=== PATIENT | male | born 1995 | race Caucasian/White ===

== ENCOUNTER 2022-09-22 07:09 | Emergency (ER) | payer SELFPAY ==
[2022-09-22 07:19] VITALS: BP 122/78
--- NOTE | 2022-09-22 07:28 | ED Physician Documentation ---
History of Present Illness - Stated complaint Stated Complaint: CONSTIPATION - Chief complaint Chief Complaint: General - History obtained from History obtained from: Patient - Additonal information Additional information: Otherwise healthy 27-year-old gentleman has not had a decent bowel movement in the last 3 to 4 days. He has rectal pain especially when he tries to have a bowel movement. Minimal anterior abdominal pain. No nausea. No clear inciting cause for this. He tried Dulcolax without relief. PD PAST MEDICAL HISTORY - Past Medical History Cardiovascular: None Respiratory: None Neuro: None Endocrine/Autoimmune: None GI: None : None HEENT: None Psych: None Musculoskeletal: None Derm: None - Past Surgical History Past Surgical History: No - Present Medications Home Medications: Ambulatory Orders Medication Instructions Recorded Confirmed No Known Home Medications 09/22/22 09/22/22 - Allergies Allergies/Adverse Reactions: Allergies Allergy/AdvReac Type Severity Reaction Status Date / Time No Known Drug Allergies Allergy Verified 09/22/22 07:16 - Social History Does the pt smoke?: No Smoking Status: Never smoker Does the pt drink ETOH?: Yes Does the pt have substance abuse?: Yes Substance Use and Type: Marijuana - Immunizations Immunizations are current?: No Immunizations: Other immun not current PD ED PE NORMAL - Vitals Vital signs reviewed: Yes - General General: Alert and oriented X 3, No acute distress - Abdomen Abdomen: Normal bowel sounds, Soft, Non tender - Rectal Rectal: Other (Firm large fecal impaction) Results - Vitals Vitals: Vital Signs - 24 hr 09/22/22 07:16 Temperature 36.6 C Heart Rate 89 Respiratory 16 Rate Blood Pressure 122/78 O2 Saturation 100 Oxygen O2 Source Room air PD Medical Decision Making - ED course ED course: This is a young man with a fecal impaction. Otherwise benign exam. He was administered 2 fleets enemas with large bowel movement and relief of symptoms. Departure - Departure Disposition: 01 Home, Self Care Clinical Impression: Fecal impaction Condition: Good Record reviewed to determine appropriate education?: Yes Instructions: ED Impaction Fecal Treated Comments: Call your doctor to arrange a follow-up appointment, make the next available appointment. In the interim, return anytime if worse or if new symptoms develop. Discharge Date/Time: 09/22/22 08:07
== END 2022-09-22 08:07 | disposition home or self-care (01) ==
LOC: ED 07:09
DX: K56.41 Fecal impaction (principal)
CPT/HCPCS: 99281; 99283